=== PATIENT | male | born 1980 | race Caucasian/White ===

== ENCOUNTER 2020-07-29 14:02 | Emergency (ER) | payer OTHER ==
[2020-07-29 14:06] VITALS: BP 140/80; PULSE 78; TEMP 98.7; BMI 28.0
== END 2020-07-29 16:35 | disposition home or self-care (01) ==
LOC: JERFT 14:02
DX: S60.221A Contusion of right hand, initial encounter (principal)
CPT/HCPCS: 73130-TC-RT-FY; 99283-25